=== PATIENT | female | born 1995 | race African-American/Black ===

== ENCOUNTER → 2021-01-03 | Emergency (ER) | payer MEDICAID ==
[~2021-01-03] VITALS: Ht 165.1 cm; Wt 91.0 kg
[~2021-01-03] MED LIST: FERR325T22 MT; HYDROCODONE/ACETAMINOPHEN 10/325MG TABLET PO ONE; IBUPROFEN 600MG TABLET PO ONE; NAPR-1176 MT; SODIUM CHLORIDE 0.9% 1,000 ML IV ONE
[2021-01-03 14:03] VITALS: BP 122/85
[2021-01-03 14:42] LABS: BASOPHILS % 1.4 % (0.0-2.0); EOSINOPHILS % 1.9 % (0.0-5.0); HEMATOCRIT. 29.1 % (36.0-48.0); HEMOGLOBIN. 8.8 g/dL (12.0-16.0); LYMPHOCYTES % 19.4 % (20.0-50.0); MEAN CORPUSCULAR HEMOGLOBIN 20.2 pg (28.0-32.0); MEAN CORPUSCULAR VOLUME 66.8 fL (81.0-99.0); MEAN PLATELET VOLUME 9.8 fl (7.4-10.4); MONOCYTES % 12.5 % (2.0-8.0); NEUTROPHILS % 64.8 % (40.0-76.0); PLATELET 197 x1000/uL (130-400); RED BLOOD CELL COUNT 4.35 mill/uL (4.2-5.4); RED CELL DISTRIBUTION WIDTH 17.8 % (11.6-14.6)
[2021-01-03 14:51] LABS: CHLORIDE 113 mEq/L (98-107)
[2021-01-03 15:36] LABS: PLATELET ESTIMATE NORMAL
== END | disposition home or self-care (01) ==
LOC: ER 13:42
DX: R55 Syncope and collapse (principal); D64.9 Anemia, unspecified
CPT/HCPCS: 36415; 70450; 80053; 83880; 84484; 85025; 93005; 96360; 99285; J7030